=== PATIENT | male | born 1955 | race Caucasian/White ===

== ENCOUNTER → 2016-07-22 | Outpatient (CLI) | payer BC ==
--- NOTE | 2016-07-22 11:27 | CR ---
EXAMINATION: Two-view chest (PA and Lateral views). HISTORY: Shortness of breath. FINDINGS: The trachea is midline. The cardiomediastinal silhouette is within normal limits. No pulmonary infil trates, effusions or pneumothorax. Osseous structures appear unremarkable. IMPRESSION: No acute cardiopulmonary process.
[2016-07-22 12:05] LABS: CHLORIDE,CL 104 mmol/L (98-110); SODIUM,NA 139 mmol/L (136-146)
== END ==
LOC: MW.CHRC 10:27
PROVIDERS: ATTEND Family Medicine
DX: R06.02 Shortness of breath (principal)
CPT/HCPCS: 36415; 71020; 71020-26; 80053; 83880; 85025; 93005

== ENCOUNTER 2017-03-24 12:31 | Emergency (ER) | payer BC ==
[2017-03-24] MEDS ORDERED: Albuterol/Ipratropium 3.0-0.5 MG/3 ML Neb Soln NEB ONE (12:49)
--- NOTE | 2017-03-24 12:49 | EDM.PDOC ---
ED HPI GENERAL MEDICAL PROBLEM - General Chief Complaint: Respiratory Problem Stated Complaint: COUGH Time Seen by Provider: 03/24/17 12:36 - History of Present Illness INITIAL COMMENTS - FREE TEXT/NARRATIVE: HISTORY AND PHYSICAL: History of present illness: Patient 62-year-old white male from extensive past medical history atrial fibrillation congestive heart failure hypertension and asthma presents with concern of cough with intermittent productive phlegm or last several weeks he denies fever chills chest pain nausea vomiting or other concerns Review of systems: As per history of present illness and below otherwise all systems reviewed and negative. Past medical history: As per history of present illness and as reviewed below otherwise noncontributory. Surgical history: As per history of present illness and as reviewed below otherwise noncontributory. Social history: No reported history of drug or alcohol abuse. Family history: As per history of present illness and as reviewed below otherwise noncontributory. Physical exam: HEENT: Atraumatic, normocephalic, pupils reactive, negative for conjunctival pallor or scleral icterus, mucous membranes moist, throat clear, neck supple, nontender, trachea midline. Lungs: Slightly coarse bilaterally, breath sounds equal bilaterally, chest nontender. Heart: S1S2, regular, negative for clicks, rubs, or JVD. Abdomen: Soft, nondistended, nontender. Negative for masses or hepatosplenomegaly. Negative for costovertebral tenderness. Pelvis: Stable nontender. Genitourinary: Deferred. Rectal: Deferred. Extremities: Atraumatic, negative for cords or calf pain. Neurovascular unremarkable. Neuro: Awake, alert, oriented. Cranial nerves II through XII unremarkable. Cerebellum unremarkable. Motor and sensory unremarkable throughout. Exam nonfocal. Diagnostics: CBC CMP influenza screen BNP chest x-ray Therapeutics: Albuterol ipratropium nebulizer Impression: #1 pneumonitis #2 history of CHF #3 history of A. fib #4 history of asthma Definitive disposition and diagnosis as appropriate pending reevaluation and review of above. - Related Data Allergies Allergy/AdvReac Type Severity Reaction Status Date / Time peanut Allergy Anaphylactic Verified 01/31/16 10:33 Shock Home Meds: Home Meds Furosemide [Lasix] 20 mg PO DAILY #30 tablet 01/08/14 [Rx] Metoprolol Tartrate [Lopressor] 50 mg PO BID #60 tablet 09/08/14 [Rx] Potassium Chloride [Klor-Con M20] 20 meq PO DAILY 30 Days tab.er 01/08/14 [Rx] Digoxin [Lanoxin] 250 mcg PO BRK 11/23/14 [History] Colchicine [Colcrys] 1 tab PO ASDIRECTED PRN 12/23/15 [History] Rivaroxaban [Xarelto] 20 mg PO DAILY 12/23/15 [History] Albuterol [Ventolin HFA] 90 unit INH Q4H PRN #1 inhaler 01/31/16 [Rx] Azithromycin 500 mg PO DAILY #3 tablet 01/31/16 [Rx] Benzonatate [Tessalon Perles] 100 mg PO TID PRN #21 cap 01/31/16 [Rx] Prednisone [IJD: predniSONE] 40 mg PO WITHBREAKFAST #5 tab 01/31/16 [Rx] Past Medical History HEENT History: Reports: None Cardiovascular History: Reports: Afib, Heart Failure, Hypertension, Other (See Below) Other Cardiovascular History: Afib, CHF, HTN Other Respiratory History: History Asthma as child-resolved. Gastrointestinal History: Reports: GERD (patient denies gerd.) Other Gastrointestinal History: Past hx: GERD Quit drinking Beer and been okay, Current umbilical and ventral hernia Genitourinary History: Reports: None Musculoskeletal History: Reports: Gout (no flare at this time.) Neurological History: Reports: None Other Psychiatric History: No alcohol for over a year Endocrine/Metabolic History: Reports: Obesity/BMI 30+ Hematologic History: Reports: None Immunologic History: Reports: None Oncologic (Cancer) History: Reports: None Other Dermatologic History: Rosacea-no problems at this time. - Past Surgical History GI Surgical History: Reports: Appendectomy, Hernia Repair/Other Social & Family History - Family History Family Medical History: Noncontributory - Tobacco Use Smoking Status *Q: Former Smoker Years of Tobacco use: 15 Used Tobacco, but Quit: Yes Month Tobacco Last Used: 1982 Second Hand Smoke Exposure: No - Caffeine Use Caffeine Use: Reports: None - Alcohol Use Days Per Week of Alcohol Use: 7 Number of Drinks Per Day: 6 Total Drinks Per Week: 42 - Recreational Drug Use Recreational Drug Use: Yes Drug Use in Last 12 Months: No ED ROS GENERAL - Review of Systems Review Of Systems: ROS reveals no pertinent complaints other than HPI. ED EXAM, GENERAL - Physical Exam Exam: See Below (See dictation) Course - Vital Signs Last Recorded V/S: Last Vital Signs Temp 35.8 C 03/24/17 12:45 Pulse 93 03/24/17 12:45 Resp 18 03/24/17 12:45 BP 132/69 03/24/17 12:45 Pulse Ox 95 03/24/17 12:45 - Orders/Labs/Meds Orders: Active Orders 24 hr Category Date Time Status RT Aerosol Therapy [RC] ASDIRECTED Care 03/24/17 12:49 Active Labs: Laboratory Tests 03/24/17 03/24/17 03/24/17 Range/Units 13:01 13:01 13:01 WBC 10.30 (4.0-11.0) K/uL RBC 5.26 (4.50-5.90) M/uL Hgb 16.6 (13.0-17.0) g/dL Hct 47.0 (38.0-50.0) % MCV 89.4 (80.0-98.0) fL MCH 31.6 (27.0-32.0) pg MCHC 35.3 (31.0-37.0) g/dL RDW Std Deviation 43.9 (28.0-62.0) fl RDW Coeff of Jose G 14 (11.0-15.0) % Plt Count 247 (150-400) K/uL MPV 10.00 (7.40-12.00) fL Add Manual Diff YES Neutrophils % (Manual) 56 (48.0-80.0) % Band Neutrophils % 3 % Lymphocytes % (Manual) 27 (16.0-40.0) % Monocytes % (Manual) 9 (0.0-15.0) % Eosinophils % (Manual) 4 (0.0-7.0) % Basophils % (Manual) 1 (0.0-1.5) % Nucleated RBC % 0.0 /100WBC Absolute Seg Neuts 5.8 H (1.4-5.7) Band Neutrophils # 0.3 Lymphocytes # (Manual) 2.8 H (0.6-2.4) Monocytes # (Manual) 0.9 H (0.0-0.8) Eosinophils # (Manual) 0.4 (0.0-0.7) Basophils # (Manual) 0.1 (0.0-0.1) Nucleated RBCs # 0 K/uL Sodium 139 (136-146) mmol/L Potassium 4.0 (3.5-5.1) mmol/L Chloride 108 (98-110) mmol/L Carbon Dioxide 20 L (21-31) mmol/L BUN 11 (6.0-23.0) mg/dL Creatinine 1.0 (0.6-1.5) mg/dL Est Cr Clr Drug Dosing 77.06 mL/min Estimated GFR (MDRD) > 60.0 ml/min Glucose 113 H (60-110) mg/dL Calcium 8.9 (8.8-10.8) mg/dL Total Bilirubin 0.9 (0.1-1.5) mg/dL AST 29 (5-40) IU/L ALT 22 (8-54) IU/L Alkaline Phosphatase 104 (40-150) B-Natriuretic Peptide 71 (<100) PG/ML Total Protein 7.5 (6.0-8.0) g/dL Albumin 4.0 (3.4-4.8) g/dL Globulin 3.5 (2.0-3.5) g/dL Albumin/Globulin Ratio 1.1 L (1.3-2.8) Meds: Medications Discontinued Medications Generic Name Dose Route Start Last Admin Trade Name Vinnyq PRN Reason Stop Dose Admin Albuterol/Ipratropium 3 ml 03/24/17 12:49 03/24/17 12:53 Duoneb 3.0-0.5 Mg/3 Ml NEB 03/24/17 12:50 3 ml ONETIME ONE Administration Albuterol/Ipratropium Confirm 03/24/17 12:52 Duoneb 3.0-0.5 Mg/3 Ml Administered 03/24/17 12:53 Dose 3 ml .ROUTE .STK-MED ONE Departure - Departure Time of Disposition: 14:24 Disposition: Home, Self-Care 01 Condition: Good Clinical Impression: Tracheobronchitis - Discharge Information Referrals: PCP,None [Primary Care Provider] - Forms: ED Department Discharge Additional Instructions: The following information is given to patients seen in the emergency department who are being discharged to home. This information is to outline your options for follow-up care. We provide all patients seen in our emergency department with a follow-up referral. The need for follow-up, as well as the timing and circumstances, are variable depending upon the specifics of your emergency department visit. If you don't have a primary care physician on staff, we will provide you with a referral. We always advise you to contact your personal physician following an emergency department visit to inform them of the circumstance of the visit and for follow-up with them and/or the need for any referrals to a consulting specialist. The emergency department will also refer you to a specialist when appropriate. This referral assures that you have the opportunity for followup care with a specialist. All of these measure are taken in an effort to provide you with optimal care, which includes your followup. Under all circumstances we always encourage you to contact your private physician who remains a resource for coordinating your care. When calling for followup care, please make the office aware that this follow-up is from your recent emergency room visit. If for any reason you are refused follow-up, please contact the [facility] emergency department at and asked to speak to the emergency department charge nurse. Augmentin as prescribed continue current medications follow-up primary medical doctor 1-2 days return as needed as discussed - My Orders Last 24 Hours: My Active Orders 03/24/17 12:49 RT Aerosol Therapy [RC] ASDIRECTED - Assessment/Plan Last 24 Hours: My Active Orders 03/24/17 12:49 RT Aerosol Therapy [RC] ASDIRECTED
[2017-03-24] MEDS ORDERED: Albuterol/Ipratropium 3.0-0.5 MG/3 ML Neb Soln ONE (12:52)
[2017-03-24 13:32] LABS: CHLORIDE,CL 108 mmol/L (98-110); SODIUM,NA 139 mmol/L (136-146)
--- NOTE | 2017-03-24 13:35 | CR ---
EXAMINATION: Two-view chest (PA and Lateral views). HISTORY: Shortness of breath. FINDINGS: The trachea is midline. The cardiomediastinal silhouette is within normal limits. No pulmonary infilt rates, effusions or pneumothorax. Mild biapical scarring. Osseous structures appear unremarkable. IMPRESSION: No acute cardiopulmonary process.
[2017-03-24 14:50] VITALS: BP 121/76
== END 2017-03-24 14:47 | disposition home or self-care (01) ==
LOC: MW.ED 12:31
DX: J18.9 Pneumonia, unspecified organism (principal); J40 Bronchitis, not specified as acute or chronic; I11.0 Hypertensive heart disease with heart failure; I50.9 Heart failure, unspecified; Z79.899 Other long term (current) drug therapy; Z87.891 Personal history of nicotine dependence; Z91.010 Allergy to peanuts
CPT/HCPCS: 36415; 71020; 71020-26; 80053; 83880; 85025; 87804; 94640; 99284; 99284-25

== ENCOUNTER 2019-10-30 12:07 | Emergency (ER) | payer BC ==
--- NOTE | 2019-10-30 12:15 | EDM.PDOC ---
ED HPI GENERAL MEDICAL PROBLEM - General Chief Complaint: Lower Extremity Injury/Pain Stated Complaint: GOUT L FOOT Time Seen by Provider: 10/30/19 12:09 Source of Information: Reports: Patient History Limitations: Reports: No Limitations - History of Present Illness INITIAL COMMENTS - FREE TEXT/NARRATIVE: HISTORY AND PHYSICAL: History of present illness: Patient is a 64-year-old male who presents to the emergency room with concerns of gout to his left lower foot. He reports that he does have a history of gout and has colchicine available to him. He did take a dose when this initially started but feels that he "did not catch it soon enough". Pain starts at the left great toe and radiates to the mid foot/arch. There is redness at the left great toe with some tenderness to palpation. He denies any injury, trauma or falls. Patient denies any fever, chills, headache, change in vision, syncope or near syncope. Denies any chest pain, back pain, shortness of breath or cough. Denies any abdominal pain, nausea, vomiting, diarrhea, constipation or dysuria. Has not noted any blood in urine or stool. Patient has been eating and drinking appropriately. Past medical history of congestive heart failure and atrial fibrillation. Review of systems: As per history of present illness and below otherwise all systems reviewed and negative. Past medical history: As per history of present illness and as reviewed below otherwise noncontributory. Surgical history: As per history of present illness and as reviewed below otherwise noncontributory. Social history: See social history for further information Family history: As per history of present illness and as reviewed below otherwise noncontributory. Physical exam: General: Well-developed and well-nourished 64-year-old male. Alert and oriented. Nontoxic-appearing and in no acute distress. HEENT: Atraumatic, normocephalic, pupils equal and reactive bilaterally, negative for conjunctival pallor or scleral icterus, mucous membranes moist, TMs normal bilaterally, throat clear, neck supple, nontender, trachea midline. No drooling or trismus noted. No meningeal signs. No hot potato voice noted. Lungs: Clear to auscultation, breath sounds equal bilaterally, chest nontender. Heart: S1S2, regular rate and rhythm without overt murmur Abdomen: Soft, nondistended, nontender. Skin: Intact, warm, dry. No lesions or rashes noted. Extremities: Atraumatic, moves all extremities per self without difficulty or deficits, negative for cords or calf pain. Neurovascular unremarkable. Neuro: Awake, alert, oriented. Cranial nerves II through XII unremarkable. Cerebellum unremarkable. Motor and sensory unremarkable throughout. Exam nonfocal. Notes: Patient declines wanting diagnostics done at this time. He denies any injury, trauma or falls. We discussed signs and symptoms that would prompt him to return to the emergency room. I would like him to follow-up with his primary care provider to have the extremity reevaluated. Follow-up, medication and supportive care measures were reviewed and discussed. Voices understanding and is agreeable to plan of care. Denies any further questions or concerns at this time. Diagnostics: Declined Therapeutics: Colchicine, Prednisone Prescription: Prednisone Impression: Gout, left great toe Plan: 1. Rest, ice, elevate the affected extremity. Continue to monitor the site for signs of improvement. As we discussed, if this does not improve, you need to follow up with your primary care provider or return to the ED. 2. You received your initial dose of Colchicine here, take the second dose in one hour. Your first dose of prednisone was given here, start that prescription tomorrow. Please take Ibuprofen 400-800mg three times daily over the next week 3. Tylenol as needed for breakthrough pain management. Definitive disposition and diagnosis as appropriate pending reevaluation and review of above. - Related Data Allergies Allergy/AdvReac Type Severity Reaction Status Date / Time peanut Allergy Anaphylactic Verified 01/31/16 10:33 Shock Home Meds: Home Meds Furosemide [Lasix] 20 mg PO DAILY #30 tablet 01/08/14 [Rx] Metoprolol Tartrate [Lopressor] 50 mg PO BID #60 tablet 01/08/14 [Rx] Potassium Chloride [Klor-Con M20] 20 meq PO DAILY 30 Days tab.er 01/08/14 [Rx] Digoxin [Lanoxin] 250 mcg PO BRK 11/23/14 [History] Colchicine [Colcrys] 1 tab PO ASDIRECTED PRN 12/23/15 [History] Rivaroxaban [Xarelto] 20 mg PO DAILY 10/30/19 [History] predniSONE [Prednisone] 30 mg PO DAILY 4 Days #12 tablet 10/30/19 [Rx] Past Medical History HEENT History: Reports: None Cardiovascular History: Reports: Afib, Heart Failure, Hypertension, Other (See Below) Other Cardiovascular History: Afib, CHF, HTN Other Respiratory History: History Asthma as child-resolved. Gastrointestinal History: Reports: GERD (patient denies gerd.) Other Gastrointestinal History: Past hx: GERD Quit drinking Beer and been okay, Current umbilical and ventral hernia Genitourinary History: Reports: None Musculoskeletal History: Reports: Gout (no flare at this time.) Neurological History: Reports: None Other Psychiatric History: No alcohol for over a year Endocrine/Metabolic History: Reports: Obesity/BMI 30+ Hematologic History: Reports: None Immunologic History: Reports: None Oncologic (Cancer) History: Reports: None Other Dermatologic History: Rosacea-no problems at this time. - Infectious Disease History Infectious Disease History: Reports: Chicken Pox - Past Surgical History GI Surgical History: Reports: Appendectomy, Hernia Repair/Other Social & Family History - Family History Family Medical History: Noncontributory - Caffeine Use Caffeine Use: Reports: None Review of Systems - Review of Systems Review Of Systems: Comprehensive ROS is negative, except as noted in HPI. ED EXAM, GENERAL - Physical Exam Exam: See Below (See dictation) Course - Vital Signs Last Recorded V/S: Last Vital Signs Temp 96.1 F L 10/30/19 12:25 Pulse 89 10/30/19 13:13 Resp 16 10/30/19 13:13 BP 120/83 10/30/19 13:13 Pulse Ox 98 10/30/19 13:13 - Orders/Labs/Meds Meds: Medications Discontinued Medications Generic Name Dose Route Start Last Admin Trade Name Luc PRN Reason Stop Dose Admin Colchicine 1.8 mg 10/30/19 12:26 10/30/19 12:54 Colcrys PO 10/30/19 12:27 1.8 mg ONETIME ONE Administration Prednisone 30 mg 10/30/19 12:30 10/30/19 12:54 Prednisone PO 30 mg DAILY MAC Administration Departure - Departure Time of Disposition: 12:31 Disposition: Home, Self-Care 01 Clinical Impression: Gout Qualifiers: Gout site: toe Gout etiology: unspecified cause Chronicity: acute Laterality: left Qualified Code(s): M10.9 - Gout, unspecified - Discharge Information Prescriptions: predniSONE [Prednisone] 30 mg PO DAILY 4 Days #12 tablet Instructions: Low-Purine Eating Plan Referrals: Small,Leonidas Chaz, MD [Primary Care Provider] - Forms: ED Department Discharge Additional Instructions: The following information is given to patients seen in the emergency department who are being discharged to home. This information is to outline your options for follow-up care. We provide all patients seen in our emergency department with a follow-up referral. The need for follow-up, as well as the timing and circumstances, are variable depending upon the specifics of your emergency department visit. If you don't have a primary care physician on staff, we will provide you with a referral. We always advise you to contact your personal physician following an emergency department visit to inform them of the circumstance of the visit and for follow-up with them and/or the need for any referrals to a consulting specialist. The emergency department will also refer you to a specialist when appropriate. This referral assures that you have the opportunity for follow-up care with a specialist. All of these measure are taken in an effort to provide you with optimal care, which includes your follow-up. Under all circumstances we always encourage you to contact your private physician who remains a resource for coordinating your care. When calling for follow-up care, please make the office aware that this follow-up is from your recent emergency room visit. If for any reason you are refused follow-up, please contact the [facility] Emergency Department at and asked to speak to the emergency department charge nurse. [facility] [address] [place] [id number] [place] [address] 1. Rest, ice, elevate the affected extremity. Continue to monitor the site for signs of improvement. As we discussed, if this does not improve, you need to follow up with your primary care provider or return to the ED. 2. You received your initial dose of Colchicine here, take the second dose in one hour. Your first dose of prednisone was given here, start that prescription tomorrow. Please take Ibuprofen 400-800mg three times daily over the next week 3. Tylenol as needed for breakthrough pain management. Sepsis Event Note (ED) - Focused Exam Vital Signs: Vital Signs Temp Pulse Resp BP Pulse Ox 10/30/19 13:13 89 16 120/83 98 10/30/19 12:25 96.1 F L 100 15 134/87 96
[2019-10-30] MEDS ORDERED: Colchicine 0.6 MG Tab PO ONE (12:26)
[2019-10-30] MEDS ORDERED: predniSONE 10 MG Tab PO SCH (12:30)
[2019-10-30 13:13] VITALS: BP 120/83; PULSE 89
== END 2019-10-30 13:14 | disposition home or self-care (01) ==
LOC: MW.ED 12:07
DX: M10.9 Gout, unspecified (principal); I11.0 Hypertensive heart disease with heart failure; I50.9 Heart failure, unspecified; I48.91 Unspecified atrial fibrillation; E66.9 Obesity, unspecified; Z68.32 Body mass index [BMI] 32.0-32.9, adult; Z90.49 Acquired absence of other specified parts of digestive tract; Z91.010 Allergy to peanuts; Z79.899 Other long term (current) drug therapy; Z79.01 Long term (current) use of anticoagulants
CPT/HCPCS: 99283; A9270

== ENCOUNTER 2022-01-09 18:18 | Emergency (ER) | payer BC ==
[2022-01-09 21:36] LABS: CARBON DIOXIDE,CO2 25.4 mmol/L (21.0-32.0); POTASSIUM,K 4.1 mmol/L (3.5-5.1)
[2022-01-09] MEDS ORDERED: Iopamidol 755 Mg/ML 100 ML Bottle IVPUSH ONE (22:25)
[2022-01-09] MEDS ORDERED: cefTRIAXone 1 GM in Sodium Chloride 0.9% 50 ML IV ONE (23:22)
[2022-01-09 23:57] VITALS: BP 102/61; PULSE 85
== END 2022-01-10 | disposition home or self-care (01) ==
LOC: MW.ED 18:18
DX: N30.91 Cystitis, unspecified with hematuria (principal); I11.0 Hypertensive heart disease with heart failure; I50.9 Heart failure, unspecified; E66.9 Obesity, unspecified; M10.9 Gout, unspecified; Z91.010 Allergy to peanuts; Z79.899 Other long term (current) drug therapy
CPT/HCPCS: 36415; 74177; 80053; 81001; 85025; 85610; 85730; 96374; 99284; J0696; Q9967

== ENCOUNTER 2022-05-26 11:49 | Emergency (ER) | payer BC ==
[2022-05-26] MEDS ORDERED: Aspirin 81 MG Tab.Chew PO ONE (12:14)
[2022-05-26 13:07] LABS: CARBON DIOXIDE,CO2 26.3 mmol/L (21.0-32.0); POTASSIUM,K 3.7 mmol/L (3.5-5.1)
[2022-05-26 13:22] LABS: CORONAVIRUS COVID-19 NAA NEGATIVE (NEGATIVE); INFLUENZA A NAA NEGATIVE (NEGATIVE); INFLUENZA B NAA NEGATIVE (NEGATIVE); RESPIRATORY SYNCYTIAL VIR NAA NEGATIVE (NEGATIVE)
[2022-05-26 14:28] VITALS: BP 118/73; PULSE 93
== END 2022-05-26 14:29 | disposition home or self-care (01) ==
LOC: MW.ED 11:49
DX: J06.9 Acute upper respiratory infection, unspecified (principal); I48.91 Unspecified atrial fibrillation; I11.0 Hypertensive heart disease with heart failure; I50.9 Heart failure, unspecified; E66.9 Obesity, unspecified; Z68.30 Body mass index [BMI] 30.0-30.9, adult; Z20.822 Contact with and (suspected) exposure to COVID-19; Z79.899 Other long term (current) drug therapy; Z91.010 Allergy to peanuts
CPT/HCPCS: 0241U; 36415; 71045; 80053; 83880; 84484; 85025; 85610; 93005; 99284; A9270; 93010; 99283

== ENCOUNTER 2024-05-04 14:03 | Emergency (ER) | payer BC ==
[2024-05-04 15:45] LABS: BASOPHILS ABSOLUTE AUTO 0.06 K/uL (0.00-0.20); BASOPHILS PERCENT AUTO 0.9 % (0.0-1.0); EOSINOPHILS PERCENT AUTO 1.5 % (0.0-6.0); HEMATOCRIT 42.8 % (42.0-52.0); HEMOGLOBIN 15.1 g/dL (14.0-18.0); IMMATURE GRAN ABSOLUTE AUTO 0.05 K/uL (0.00-0.05); IMMATURE GRAN PERCENT AUTO 0.8 % (0.0-0.4); LYMPHOCYTES ABSOLUTE AUTO 1.02 K/uL (1.00-4.80); LYMPHOCYTES PERCENT AUTO 15.7 % (24.0-44.0); MEAN CORPUSCULAR HEMOGLOBIN 31.3 pg (28.0-32.0); MEAN CORPUSCULAR HGB CONC 35.3 g/dL (32.0-36.0); MEAN CORPUSCULAR VOLUME 88.6 fL (83.0-99.0); MEAN PLATELET VOLUME 9.2 fL (9.4-12.4); MONOCYTES ABSOLUTE AUTO 0.74 K/uL (0.00-0.80); MONOCYTES PERCENT AUTO 11.4 % (0.0-8.0); NEUTROPHILS ABSOLUTE AUTO 4.53 K/uL (1.80-7.70); NEUTROPHILS PERCENT AUTO 69.7 % (41.0-71.0); PLATELET COUNT,PLT 209 K/uL (150-400); RED BLOOD CELL COUNT 4.83 M/uL (4.52-5.90)
[2024-05-04 16:09] LABS: ALBUMIN 3.6 g/dL (3.4-5.0); BILIRUBIN TOTAL 1.1 mg/dL (0.2-1.0); CALCIUM 8.3 mg/dL (8.5-10.1); CARBON DIOXIDE,CO2 28.2 mmol/L (21.0-32.0); EST CRCL DRUG DOSING (CG) 69.96 mL/min; POTASSIUM,K 3.6 mmol/L (3.5-5.1); PROTEIN TOTAL,TP 7.3 g/dL (6.4-8.2)
[2024-05-04 16:31] VITALS: BP 142/91; PULSE 82
== END 2024-05-04 18:34 | disposition home or self-care (01) ==
LOC: MW.ED 14:03
DX: J10.1 Influenza due to other identified influenza virus with other respiratory manifestations (principal); I48.91 Unspecified atrial fibrillation; J45.909 Unspecified asthma, uncomplicated; Z90.49 Acquired absence of other specified parts of digestive tract; Z91.010 Allergy to peanuts; Z79.01 Long term (current) use of anticoagulants; Z79.52 Long term (current) use of systemic steroids; Z79.899 Other long term (current) drug therapy; Z75.8 Other problems related to medical facilities and other health care
CPT/HCPCS: 36415; 71045; 71045-26; 80053; 83880; 84484; 85025; 85379; 87428-QW; 93005; 99285